=== PATIENT | male | born 1965 | race Caucasian/White ===

== ENCOUNTER 2025-10-07 13:45 | Outpatient (RCR) | payer BC, SELFPAY | END 2025-10-11 14:15 | disposition home or self-care (01) | LOC: ANHCPREHAB 13:45 | PROVIDERS: Visit Provider Specialist | DX: Z95.5 Presence of coronary angioplasty implant and graft (principal); I10 Essential (primary) hypertension; I48.91 Unspecified atrial fibrillation; E78.5 Hyperlipidemia, unspecified | CPT/HCPCS: 93798 ==